=== PATIENT | female | born 1940 | race Caucasian/White ===

== ENCOUNTER 2019-11-24 18:44 | Emergency (ER) | payer MEDICARE ==
[~2019-11-24] VITALS: Ht 160 cm; Wt 68.0 kg
--- NOTE | 2019-11-24 18:55 | NUR ---
RPT RECEIVED FROM RASHEEDA CERVANTES. ASSUMED CARE OF PT.
[2019-11-24] MEDS ORDERED: KETOROLAC 30 MG/1 ML IVPush ONE (20:30)
[2019-11-24] MEDS ORDERED: MORPHINE SULFATE 4 MG/ML, 1ML IVPush PRN (20:30)
[2019-11-24] MEDS ORDERED: LIDOCAINE 1%, 10ML INFIL ONE (20:30)
[2019-11-24] MEDS ORDERED: KETOROLAC 30 MG/1 ML ONE (21:14)
[2019-11-24] MEDS ORDERED: MORPHINE SULFATE 4 MG/ML, 1ML ONE (21:14)
[2019-11-24] MEDS ORDERED: LIDOCAINE-MPF 1%, 5ML ONE (21:14)
[2019-11-24] MEDS ORDERED: PLEASE ENTER ALLERGIES MC SCH (21:30)
[2019-11-24] MEDS ORDERED: NEOSPORIN OINT. PKT 1 PACKET ONE (21:34)
[2019-11-24 22:29] VITALS: BP 131/64
[2019-11-25] MEDS ORDERED: CITA40TA5 PO (18:17)
[2019-11-25] MEDS ORDERED: LEVO25TA4 PO (18:18)
[2019-11-25] MEDS ORDERED: ATOR40TA78 PO (18:23)
[2019-11-25] MEDS ORDERED: PANT20TA3 PO (18:23)
[2019-11-25] MEDS ORDERED: ALPR1TAB5 PO (18:23)
[2019-11-25] MEDS ORDERED: PROM25TA10 PO (18:24)
[2019-11-25] MEDS ORDERED: VITAMIN E (18:24)
[2019-11-25] MEDS ORDERED: CALCIUM (18:24)
[2019-11-25] MEDS ORDERED: NITR100C56 PO (18:25)
[2019-11-25] MEDS ORDERED: TURM538C PO (18:26)
== END 2019-11-24 22:43 | disposition home or self-care (01) ==
LOC: ED 22:34
DX: S02.2XXA Fracture of nasal bones, initial encounter for closed fracture (principal); S01.81XA Laceration without foreign body of other part of head, initial encounter; S16.1XXA Strain of muscle, fascia and tendon at neck level, initial encounter; S80.01XA Contusion of right knee, initial encounter; W01.0XXA Fall on same level from slipping, tripping and stumbling without subsequent striking against object, initial encounter; Y93.89 Activity, other specified; Y92.009 Unspecified place in unspecified non-institutional (private) residence as the place of occurrence of the external cause; Y99.8 Other external cause status
CPT/HCPCS: 12052; 70450; 72125; 73564; 96374; 96375; 99285; J1885; J2270; J3490

== ENCOUNTER 2019-11-25 16:40 | Observation (INO) | payer MEDICARE ==
[~2019-11-25] VITALS: Ht 160 cm; Wt 70.5 kg
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
--- NOTE | 2019-11-25 16:52 | NUR ---
PT TO CT AT THIS TIME.
--- NOTE | 2019-11-25 17:01 | NUR ---
pt back to room from ct at this time.
--- NOTE | 2019-11-25 17:25 | NUR ---
mouth swab given at this time.
[2019-11-25 17:27] LABS: BASOPHILS # (AUTO) 0.02 x10^3/uL (0-0.1); BASOPHILS % (AUTO) 0 % (0-1); EOSINOPHILS # (AUTO) 0.04 x10^3/uL (0-0.4); EOSINOPHILS % (AUTO) 1 % (1-7); LYMPHOCYTES # (AUTO) 0.55 x10^3/uL (1-3.4); LYMPHOCYTES % (AUTO) 10 % (22-44); MD NO; MEAN CORPUSCULAR HEMOGLOBIN 29.4 pg (27.0-34.8); MEAN CORPUSCULAR HGB CONC 32.7 g/dL (32.4-35.8); MEAN CORPUSCULAR VOLUME 89.7 fL (80-100); MEAN PLATELET VOLUME 8.1 fL (7.4-10.4); MONOCYTES # (AUTO) 0.35 x10^3/uL (0.2-0.8); MONOCYTES % (AUTO) 6 % (2-9); NEUTROPHILS # (AUTO) 4.53 x10^3/uL (1.8-6.8); NEUTROPHILS % (AUTO) 83 % (42-75); PLATELET COUNT 181 x10^3/uL (130-400); RED BLOOD COUNT 4.56 x10^6/uL (3.82-5.3); RED CELL DISTRIBUTION WIDTH 15.3 % (9.6-15.2)
[2019-11-25 17:38] LABS: ALANINE AMINOTRANSFERASE 19 U/L (12-78); ALBUMIN 3.2 g/dL (3.4-5.0); ANION GAP 5 mmol/L (5-15); CALCIUM 8.8 mg/dL (8.5-10.1); CHLORIDE 105 mmol/L (98-107)
[2019-11-25 17:40] LABS: ALKALINE PHOSPHATASE 67 U/L (45-117); BILIRUBIN,TOTAL 0.6 mg/dL (0.2-1.0); TOTAL PROTEIN 6.6 g/dL (6.4-8.2)
[2019-11-25] MEDS ORDERED: CITA40TA5 PO (18:17)
[2019-11-25] MEDS ORDERED: LEVO25TA4 PO (18:18)
[2019-11-25] MEDS ORDERED: PANT20TA3 PO (18:23)
[2019-11-25] MEDS ORDERED: ALPR1TAB5 PO (18:23)
[2019-11-25] MEDS ORDERED: ATOR40TA78 PO (18:23)
[2019-11-25] MEDS ORDERED: VITAMIN E (18:24)
[2019-11-25] MEDS ORDERED: CALCIUM (18:24)
[2019-11-25] MEDS ORDERED: PROM25TA10 PO (18:24)
[2019-11-25] MEDS ORDERED: NITR100C56 PO (18:25)
[2019-11-25] MEDS ORDERED: TURM538C PO (18:26)
--- NOTE | 2019-11-25 18:27 | NUR ---
report given to laila caceres. all questions answered.
[2019-11-25 18:30] VITALS: BP 156/77
[2019-11-25] MEDS ORDERED: CYCLOBENZAPRINE 10 MG TABLET PO PRN (19:30)
[2019-11-25] MEDS ORDERED: ONDANSETRON 2MG/ML, 2ML IVPush PRN (19:30)
[2019-11-25] MEDS ORDERED: ONDANSETRON ODT 4 MG PO PRN (19:30)
[2019-11-25] MEDS ORDERED: PROMETHAZINE 25MG TABLET PO PRN (19:30)
[2019-11-25] MEDS ORDERED: HYDROcodone/APAP 5/325 TABLET PO PRN (19:30)
[2019-11-25] MEDS ORDERED: ATORVASTATIN 40 MG TABLET PO SCH (21:00)
[2019-11-25 21:40] VITALS: BP 156/77
[2019-11-25] MEDS: IBUPROFEN 600 MG TABLET PO PRN (22:09)
[2019-11-26 00:24] VITALS: BP 119/68
[2019-11-26 05:22] LABS: MEAN CORPUSCULAR HEMOGLOBIN 29.7 pg (27.0-34.8); MEAN CORPUSCULAR HGB CONC 33.4 g/dL (32.4-35.8); MEAN CORPUSCULAR VOLUME 88.7 fL (80-100); MEAN PLATELET VOLUME 7.6 fL (7.4-10.4); PLATELET COUNT 159 x10^3/uL (130-400); RED BLOOD COUNT 4.01 x10^6/uL (3.82-5.3)
[2019-11-26 05:24] LABS: ANION GAP 2 mmol/L (5-15); CALCIUM 8.3 mg/dL (8.5-10.1); CHLORIDE 109 mmol/L (98-107); CREATININE 0.76 mg/dL (0.55-1.02)
[2019-11-26 05:50] LABS: BASOPHILS # (AUTO) 0.01 x10^3/uL (0-0.1); BASOPHILS % (AUTO) 0 % (0-1); EOSINOPHILS # (AUTO) 0.07 x10^3/uL (0-0.4); EOSINOPHILS % (AUTO) 2 % (1-7); LYMPHOCYTES # (AUTO) 1.23 x10^3/uL (1-3.4); LYMPHOCYTES % (AUTO) 33 % (22-44); MD SCAN; MONOCYTES # (AUTO) 0.49 x10^3/uL (0.2-0.8); MONOCYTES % (AUTO) 13 % (2-9); NEUTROPHILS # (AUTO) 1.91 x10^3/uL (1.8-6.8); NEUTROPHILS % (AUTO) 51 % (42-75)
[2019-11-26] MEDS ORDERED: LEVOTHYROXINE 25 MCG TABLET PO SCH (06:00)
[2019-11-26 07:24] VITALS: BP 144/74
[2019-11-26] MEDS: IBUPROFEN 600 MG TABLET PO PRN ×2 (07:57→14:29)
[2019-11-26] MEDS ORDERED: CITALOPRAM 20 MG TABLET PO SCH (09:00)
[2019-11-26] MEDS ORDERED: LISINOPRIL 5 MG TABLET PO SCH (09:00)
[2019-11-26] MEDS ORDERED: PANTOPRAZOLE 20MG TABLET PO SCH (09:00)
[2019-11-26] MEDS ORDERED: ALPRazolam 1MG TAB PO PRN (13:00)
[2019-11-26 13:35] VITALS: BP 105/63
[2019-11-26] MEDS ORDERED: ONDA4TAB13 PO (13:55)
== END 2019-11-26 18:30 | disposition home or self-care (01) ==
LOC: ED 17:44 → INTOOBSV 18:01 → EDIP 18:01 → 3N 18:31
PROVIDERS: ADMIT Family Medicine; ATTEND Family Medicine
DX: R11.2 Nausea with vomiting, unspecified (principal); S02.2XXA Fracture of nasal bones, initial encounter for closed fracture; I10 Essential (primary) hypertension; F41.9 Anxiety disorder, unspecified; E78.5 Hyperlipidemia, unspecified; Z79.899 Other long term (current) drug therapy; E03.9 Hypothyroidism, unspecified; W01.0XXA Fall on same level from slipping, tripping and stumbling without subsequent striking against object, initial encounter; Y93.89 Activity, other specified; Y92.89 Other specified places as the place of occurrence of the external cause
CPT/HCPCS: 36415; 70450; 80048; 80053; 83690; 83735; 84100; 84443; 85025; 93005; 93306; 97161; 97166; 99285; G0378